=== PATIENT | female | born 1985 | race Two or more races ===

== ENCOUNTER → 2024-04-05 09:31 | Outpatient (REF) | payer BC, SELFPAY | LOC: WDC 09:31 | PROVIDERS: ATTENDING PHYSICIAN Obstetrics & Gynecology Gynecology; FAMILY PHYSICIAN Physician Assistant | DX: Z12.31 Encounter for screening mammogram for malignant neoplasm of breast (principal) | CPT/HCPCS: 77063; 77067 ==

== ENCOUNTER → 2024-04-18 10:14 | Outpatient (REF) | payer BC, SELFPAY | LOC: WDC 10:14 | PROVIDERS: ATTENDING PHYSICIAN Obstetrics & Gynecology Gynecology; FAMILY PHYSICIAN Physician Assistant | DX: R92.8 Other abnormal and inconclusive findings on diagnostic imaging of breast (principal) | CPT/HCPCS: 76642 ==

== ENCOUNTER 2025-04-28 20:00 | Emergency (ER) | payer BC, SELFPAY ==
[2025-04-28 20:02] VITALS: BP 162/122
[2025-04-28 20:16] VITALS: BP 158/94
--- NOTE | 2025-04-28 20:20 | ED.GENMED ---
History of Present Illness
General
Chief Complaint: Allergic Reaction
Source: patient and spouse
Exam Limitations: none
Time Seen by Provider: 04/28/25 20:11
Nursing documentation reviewed up to this point in time: agreed with
History of Present Illness
History of Present Illness:
39-year-old female with no significant past medical history has had 3 weeks of symptoms from stuffy nose to sore throat is stuffiness in her ears, she saw her PCP and was started on amoxicillin 8 days ago. Around noon time today she noticed 'bumps'
on her legs and this evening she noted bumps all over her torso and face and her neck with some blotchy red rash. The rash is not itchy. Her face feels burning. She denies swelling of her throat or tongue or difficulty swallowing.
Past History
Past History
ED Past Medical History: None
ED Past Surgical History: None
Social History
Tobacco: Non-smoker
Alcohol: None
Personal:
Living: with family
Employment: Employed
Review of Systems
Review of Systems
Allergies reviewed?: Yes
All Other Systems: ROS reviewed and negative except as documented in HPI and ROS
Phy Exam
Physical Exam
Physical Exam:
GENERAL: No acute distress. A&Ox3.
CONSTITUTIONAL: Afebrile.
EYES: clear, conjunctivae normal
ENMT: moist mucus membranes, Pharynx aphthous ulcer noted right side soft palate. Otherwise normal
RESPIRATORY: Regular respirations, nonlabored, lungs clear.
CARDIOVASCULAR: Regular rate and rhythm, tachycardic at 128 on bedside monitor. No murmurs, no rubs.
GI: Soft, nontender, normal BS
MUSCULOSKELETAL: Moves with ease. Well perfused.
SKIN: Warm, dry, pink. Scattered pink papular rash over entire trunk, legs and face, a blotchy red rash on neck and upper chest.
PSYCH: Normal mood and affect. Well kept, interactive and appropriate
NEUROLOGIC: Awake, alert and oriented. No focal neurological deficits
Course
Orders/Labs/Results
Orders:
Orders
04/28/25 20:19
IV Insert/Care/Rem.- Treatment PRN
0.9% Sodium Chloride 1000 ml [Nss] 1,000 ml IV BOLUS
Dexamethasone Sod Phosphate [Decadron] 10 mg IV NOW STA
Diphenhydramine [Benadryl] 50 mg IV NOW STA
Famotidine [Pepcid] 20 mg IV NOW STA
Vital Signs
Initial and Last Documented VS:
Initial Vital Signs
Pulse Resp BP Pulse Ox
129 18 162/122 100
04/28/25 20:02 04/28/25 20:02 04/28/25 20:02 04/28/25 20:02
Last Documented Vital Signs
Pulse Resp BP Pulse Ox
89 18 129/82 98
04/28/25 22:30 04/28/25 22:30 04/28/25 22:03 04/28/25 22:30
MDM/Problems Addressed
Differential Diagnosis Includes:
Drug rash from Amoxicillin, allergic reaction.
MDM/Problems Addressed:
39-year-old female with no significant past medical history has had 3 weeks of symptoms from stuffy nose to sore throat is stuffiness in her ears, she saw her PCP and was started on amoxicillin 8 days ago. Around noon time today she noticed 'bumps'
on her legs and this evening she noted bumps all over her torso and face and her neck with some blotchy red rash. The rash is not itchy. Her face feels burning. She denies swelling of her throat or tongue or difficulty swallowing.
10:20 PM:
After medications and IV fluids, patient is feeling much better, her rash is significantly improved
Stable for discharge
Rx for prednisone 40 mg daily for the next 3 days sent to her pharmacy
*Pulse Oximetry
SaO2: 100
Oxygen Mode of Delivery: Room air
Patient hypoxic: no
*Critical Care Note
Total Time (30-74mins, 75-104mins- exclusive of procedures): Not Applicable
ED Attending Note
-
Portions of this chart may have been created with voice recognition software.� Occasional wrong word or��sound alike� substitutions may have occurred due to the inherent limitations of voice recognition software.
Discharge Plan
Departure
Patient Disposition: Home (Routine Discharge)
Date of Disposition: 04/28/25
Time of Disposition: :25
Patient with high blood pressure during this ER visit?: No
Condition: Good
Discharge Problem:
Allergic reaction
Instructions: Allergic reaction - ED (DC)
Prescriptions:
New
prednisone 20 mg tablet
40 mg PO DAILY Qty: 6 0RF
No Action
No Current Medications
Referrals:
Claudette Neumann PA [Family Provider, Family Practice] - As needed
Activity Restrictions/Additional Instructions:
As we discussed, consider yourself allergic to amoxicillin and do not take it anymore
You may continue Benadryl 25 to 50 mg every 6 hours as needed for redness, swelling, itching
I sent a prescription to your pharmacy for prednisone to take 40 mg a day for the next 3 days to keep inflammation away
Interventions
Interventions:
*Risk Screen - Suicide Last Done: 04/28/25 20:10
*General Assessment Last Done: 04/28/25 20:34
*Neglect/Abuse Screening Last Done: 04/28/25 20:10
*ED- Fall Risk Assessment Last Done: 04/28/25 20:34
*ED COVID-19 Vaccine History Last Done: 04/28/25 20:34
*Nursing Disposition Last Done: 04/28/25 22:33
ED- Cardiac Assessment Last Done: 04/28/25 20:34
ED- Pulmonary Assessment Last Done: 04/28/25 20:34
ED-Skin Assessment Last Done: 04/28/25 20:34
Discharge Date and Time
Discharge Date/Time: 04/28/25 22:42
Print Language: ARABIC
[2025-04-28 20:34] VITALS: BMI 24.4
[2025-04-28] MEDS: DECADRON 10 MG IV (20:41)
[2025-04-28] MEDS: NSS 1000 IV (20:41)
[2025-04-28] MEDS: PEPCID 20 MG IV (20:42)
[2025-04-28] MEDS: BENADRYL 50 MG IV (20:42)
[2025-04-28 21:21] VITALS: BP 132/101
[2025-04-28 22:03] VITALS: BP 129/82
== END 2025-04-28 22:42 | disposition home or self-care (01) ==
LOC: EMR 20:00
PROVIDERS: EMERGENCY PHYSICIAN Emergency Medicine; FAMILY PHYSICIAN Physician Assistant
DX: T78.40XA Allergy, unspecified, initial encounter (principal); X58.XXXA Exposure to other specified factors, initial encounter
CPT/HCPCS: 96374; 96375; 96361; 99284

== ENCOUNTER → 2025-05-26 11:37 | Outpatient (REF) | payer BC, SELFPAY | LOC: WDC 11:37 | PROVIDERS: ATTENDING PHYSICIAN Obstetrics & Gynecology Gynecology | DX: Z12.31 Encounter for screening mammogram for malignant neoplasm of breast (principal) | CPT/HCPCS: 77063; 77067 ==

== ENCOUNTER → 2025-06-04 08:22 | Outpatient (REF) | payer BC, SELFPAY | LOC: WDC 08:22 | PROVIDERS: ATTENDING PHYSICIAN Obstetrics & Gynecology Gynecology | DX: R92.8 Other abnormal and inconclusive findings on diagnostic imaging of breast (principal) | CPT/HCPCS: 76642 ==